=== PATIENT | male | born 1945 | race Caucasian/White ===

== ENCOUNTER 2018-05-02 13:29 | Emergency (ER) | payer OTHER, MEDICARE ==
[~2018-05-02] VITALS: Wt 82.5 kg
--- NOTE | 2018-05-02 14:11 | ERD ---
ER Documentation Chief Complaint Chief Complaint bib ra from [facility] for left arm bleeding, taking plavix, had sx HPI 72-year-old male presents to the emergency department complaining of bleeding from his left upper extremity. Patient is a status post a ganglion cyst removal at the local [place] this morning. He was taking his normal Plavix medication. He was doing well post procedure when he noticed bleeding at the procedure site. He reported no numbness, tingling, loss of function. ROS All systems reviewed and are negative except as per history of present illness. PMhx/Soc History of Surgery: Yes (ganglian cyst removal 05/02/18) Anesthesia Reaction: No Hx Neurological Disorder: Yes (cva x 2 ) Hx Respiratory Disorders: No Hx Cardiac Disorders: Yes (htn) Hx Psychiatric Problems: No Hx Miscellaneous Medical Probl: Yes (dm) Hx Alcohol Use: No Hx Substance Use: No Hx Tobacco Use: No Smoking Status: Never smoker Physical Exam Vitals Vital Signs Date Temp Pulse Resp B/P (MAP) Pulse Ox O2 O2 Flow FiO2 Time Delivery Rate 05/02/18 98.3 111 19 141/81 100 13:32 (101) Physical Exam General: well developed, well nourished, in no distress. Neuro: Normal speech, gait, balance Extremity: Patient has a postop wound on the right wrist in the area of the radial artery. There is no active bleeding, no pulsatile hematoma, no evidence of infection. Patient is neurovascular intact distal to the wound. Patient has excellent capillary refill in all fingers of the hand. Procedures/MDM Patient was taken to a room, seen and examined Procedure: Wound care The wound was exposed, cleaned, examined. A Surgicel hemostatic dressing was applied along with pressure bandage. Patient was then observed and was noted to have no further bleeding. Medical decision makin-year-old male presents with postprocedural bleeding as an adverse reaction likely to his Plavix. Overall, patient is clinically stable after wound care and seems appropriate for outpatient care. Departure Diagnosis: Primary Impression: Adverse effect of antithrombotic medication Condition: Stable Patient Instructions: Taking Plavix Additional Instructions: Keep the wound clean and covered. See your doctor at the [place] within the next 24 hours for a recheck. Do not take your Plavix until [facility] to [facility] See your doctor or return here to the emergency department immediately if you continue to have bleeding. MERLIN BETHEAb 20, 2019 14:11
[2018-05-02 14:51] VITALS: BP 138/87; PULSE 77; RESP 19
== END 2018-05-02 14:53 | disposition home or self-care (01) ==
LOC: E/R 13:29
DX: L76.21 Postprocedural hemorrhage of skin and subcutaneous tissue following a dermatologic procedure (principal); T45.525A Adverse effect of antithrombotic drugs, initial encounter; I10 Essential (primary) hypertension; E11.9 Type 2 diabetes mellitus without complications; Z86.73 Personal history of transient ischemic attack (TIA), and cerebral infarction without residual deficits
CPT/HCPCS: 99282